=== PATIENT | female | born 1940 | race Caucasian/White ===

== ENCOUNTER → 2016-09-30 | Outpatient (CLI) | payer MEDICARE, BC ==
[~2016-09-30] MED LIST: ASPI-482 PO; CITA20TA9 PO; CLON2TAB2 PO; EZET10TA3 PO; FENO200C PO; LISI1TAB3 PO; MIRT15TA3 PO
--- NOTE | 2016-09-30 14:27 | KCIC ---
PROCEDURE CT abdomen pelvis without contrast. HISTORY Abdominal aortic aneurysm TECHNIQUE Noncontrast CT imaging was performed of the abdomen pelvis, multiplanar reconstruction images submitted. Exposure: One or more of the following individualized dose reduction techniques were utilized for this exam: 1. Automated exposure control. 2. Adjustment of the mA and/or kV according to patient size. 3. Use of iterative reconstruction technique. COMPARISON November 19, 2014 and MRI abdomen October 26, 2015 FINDINGS There is again infrarenal abdominal aortic aneurysm although is larger, now maximal transverse dimension up to 5.8 centimeters versus previously 4.8 centimeters on the 2016 exam. Aneurysm extends over approximately 9.8 centimeters in length at maximal aneurysmal dilatation, located 3.6 cm inferior to the renal arteries. However there is also aneurysmal dilatation of the juxtarenal abdominal aorta up to 4 centimeters which is similar. There is scattered plaque, also peripheral mural thrombus. Right common iliac artery is dilated up to 2.4 centimeters. Left common iliac artery measures 1.2 centimeters. There is atherosclerotic calcification of the iliac arteries bilaterally. Accurate evaluation of the abdominal visceral organs is limited without intravenous contrast. There are splenic granulomas. There are again hepatic cysts. Fullness of the adrenal gland greater on the left is unchanged. There is again multiloculated hypodense lesion of the left kidney, internal density measurements of cyst. There is again mild peripheral calcification. Overall dimension is up to 7.7 cm cc by approximately 5 cm AP x 3 cm transverse, overall slightly larger than the 2015 exam. There is no hydronephrosis of either kidney. Accurate evaluation of bowel is limited without oral contrast. There is no significant bowel dilatation, free air, free fluid. There is multilevel lumbar facet degenerative change. 0.8 centimeter right lower lobe noncalcified pulmonary nodule is stable, separate tiny nodule 0.2 cm similar. There is mild grade 1 anterior spondylolisthesis at L4-5 L5-S1. There is likely at least moderate if not severe spinal stenosis at L4-5. There is minimal posterior subluxation of L1 relative to L2. There is mild lumbar dextroscoliosis. There is mild right lateral subluxation L1 relative to L2. IMPRESSION 1. Infrarenal abdominal aortic aneurysm is larger, now up to 5.8 centimeters axial dimension. Juxtarenal abdominal aortic aneurysm is similar. Findings were called to nurse Gallego in the office of Dayana Peña 09/30/2016 at 14:25. 2. There is again multi lobulated cystic lesion of the left kidney which is somewhat larger than 2015 exam, some mild peripheral calcification similar. 3. Right lower lobe pulmonary nodules are unchanged. 4. There is suspected moderate to severe spinal stenosis L4-5. Electronically signed by: Parviz Noble MD (September 30, 2016 14:25:31)
== END | disposition home or self-care (01) ==
LOC: KCIC CT 12:13
PROVIDERS: ATTEND Physician Assistant Medical
DX: I71.4 Abdominal aortic aneurysm, without rupture (principal)
CPT/HCPCS: 74176